=== PATIENT | female | born 1960 | race Caucasian/White ===

== ENCOUNTER → 2017-06-10 15:01 | Outpatient (CLI) | payer OTHER, SELFPAY | PROVIDERS: Visit Provider Obstetrics & Gynecology | DX: R39.15 Urgency of urination (principal) | CPT/HCPCS: 87086 ==

== ENCOUNTER → 2019-04-27 17:51 | Outpatient (CLI) | payer OTHER, SELFPAY ==
[2019-05-01 03:06] LABS: Age Gdln ACOG Testing 30-65 (.)
[2019-05-01 12:43] LABS: HPV APTIMA, High Risk Negative (Negative)
[2019-05-01 12:47] LABS: HPV Reflexed? YES, CHARGE PATIENT
== END ==
PROVIDERS: Referring Provider Obstetrics & Gynecology; Visit Provider Obstetrics & Gynecology
DX: Z12.4 Encounter for screening for malignant neoplasm of cervix (principal)
CPT/HCPCS: 87624; 88175; G0145